=== PATIENT | female | born 1945 | race Caucasian/White ===

== ENCOUNTER 2016-03-24 08:14 | Outpatient (CLI) | payer MEDICARE, BC ==
[2016-03-24 09:19] LABS: ALT (SGPT) 12 U/L (0-55); AST (SGOT) 20 U/L (5-34); Alkaline Phosphatase 59 U/L (40-150); Bilirubin, Direct 0.4 mg/dL (0.1-0.3); Bilirubin, Total 1.1 mg/dL (0.2-1.2); LDL Cholesterol, Calculated 102 mg/dL; Protein, Total 6.8 g/dL (5.8-8.1)
== END 2016-03-24 08:15 | disposition home or self-care (01) ==
LOC: BURLAB 08:14
PROVIDERS: ATTEND Internal Medicine Cardiovascular Disease
DX: E78.2 Mixed hyperlipidemia (principal); Z79.899 Other long term (current) drug therapy
CPT/HCPCS: 36415; 80061; 80076

== ENCOUNTER 2016-07-14 13:42 | Outpatient (CLI) | payer MEDICARE, BC ==
--- NOTE | 2016-07-14 16:32 | RAD ---
CHEST PA AND LATERAL: History: 71-year-old female with acute upper respiratory tract infection, unspecified. FINDINGS: Heart size is normal. The lungs are clear. Mild bilateral hyperinflation. IMPRESSION: No acute intrathoracic disease. No old studies. No evidence for pneumonia. POS: [facility]
== END 2016-07-14 13:43 | disposition home or self-care (01) ==
LOC: BURRAD 13:42
PROVIDERS: ATTEND Physician Assistant
DX: J06.9 Acute upper respiratory infection, unspecified (principal)
CPT/HCPCS: 71020